=== PATIENT | female | born 1985 | race Caucasian/White ===

== ENCOUNTER → 2020-06-06 14:05 | Outpatient (BNVA) | payer OTHER, SELFPAY | PROVIDERS: Family Provider Emergency Medicine; Visit Provider Nurse Practitioner Women's Health | DX: N94.0 Mittelschmerz (principal); Z12.4 Encounter for screening for malignant neoplasm of cervix | CPT/HCPCS: 88175 ==

== ENCOUNTER → 2024-05-22 09:50 | Outpatient (BNVA) | payer OTHER, SELFPAY | PROVIDERS: Family Provider Emergency Medicine; Visit Provider Nurse Practitioner Women's Health | DX: Z01.419 Encounter for gynecological examination (general) (routine) without abnormal findings (principal); Z00.00 Encounter for general adult medical examination without abnormal findings | CPT/HCPCS: 82306; 82465; 82670; 83001; 83002; 83036; 83718; 83721; 84443; 87624 ==